=== PATIENT | male | born 1985 | race Asian ===

== ENCOUNTER 2017-06-26 14:38 | Emergency (ER) | payer OTHER ==
[~2017-06-26] VITALS: Ht 170.2 cm; Wt 70.9 kg
[2017-06-26 15:08] VITALS: BP 129/87
== END 2017-06-26 15:18 | disposition home or self-care (01) ==
LOC: EMS 14:43
DX: H10.9 Unspecified conjunctivitis (principal)
CPT/HCPCS: 99281